=== PATIENT | female | born 1990 | race Hispanic/Latino ===

== ENCOUNTER 2018-05-31 10:15 | Outpatient (CLI) | payer BC ==
--- NOTE | 2018-05-31 11:49 | RAD ---
LEFT HAND RADIOGRAPH: Date: 05/31/18 INDICATION: Arthralgia with left hand pain. FINDINGS: Joint spaces are preserved. Bone mineralization appears within normal limits. No active periarticular erosive change is evident. Soft tissues are normal appearing. IMPRESSION: Radiographically normal left hand. POS: [facility]
--- NOTE | 2018-05-31 11:50 | RAD ---
LEFT SHOULDER 2 VIEWS: Date: 05/31/18 HISTORY: Arthralgia. FINDINGS: No fracture or dislocation. AC joint appears normally aligned. IMPRESSION: Unremarkable left shoulder. POS: [facility]
--- NOTE | 2018-05-31 11:50 | RAD ---
RIGHT HAND THREE VIEWS: INDICATIONS: History of arthralgia. COMPARISON: The exam is compared to the contralateral left hand radiograph performed on the same day. FINDINGS: The joint spaces appear preserved. No periarticular erosive change is evident. Bone mineralization appears within normal limits. The soft tissues are normal appearing. No acute fracture is evident. IMPRESSION: Radiographically normal right hand. POS: [facility]
--- NOTE | 2018-05-31 11:52 | RAD ---
RIGHT SHOULDER 2 VIEWS: HISTORY: Arthralgia. No evidence of fracture or dislocation. AC joint is upper normal width but is normally aligned. IMPRESSION: Unremarkable right shoulder. POS: [facility]
== END 2018-05-31 10:16 | disposition home or self-care (01) ==
LOC: RAD 10:15 → BICRAD 10:16
PROVIDERS: ATTEND Internal Medicine
DX: M25.542 Pain in joints of left hand (principal); M25.541 Pain in joints of right hand; M25.512 Pain in left shoulder; M25.511 Pain in right shoulder; Z00.00 Encounter for general adult medical examination without abnormal findings; Z12.4 Encounter for screening for malignant neoplasm of cervix; M25.50 Pain in unspecified joint
CPT/HCPCS: 80053; 80061; 82306; 83520; 84443; 85025; 86140; 86160; 86200; 86225; 86235; 86376; 88142; G0123

== ENCOUNTER 2019-03-15 08:06 | Outpatient (CLI) | payer BC ==
--- NOTE | 2019-03-15 10:42 | ULT ---
RIGHT BREAST ULTRASOUND: Date: 03/15/19 INDICATION: History of benign biopsied right breast mass. Reference made to outside imaging from 2016. FINDINGS: Localized ultrasound of the upper right breast at site of mass of concern reveals a 2.0 cm well circu mscribed slightly hypoechoic mass, which when comparing to prior exams, is stable to slightly smaller in size. There is an additional smaller but similar morphologically appearing mass of the adjacent u pper right breast. 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 IMPRESSION: BI-RADS Category 2 - Benign findings. Stable mass of the upper right breast consistent with the patie nt's previously biopsied proven benign lesion. There is an additional, adjacent stable 1.5 cm benign appearing mass, most consistent with a stable f ibroadenoma. POS: [facility]
== END 2019-03-15 08:07 | disposition home or self-care (01) ==
LOC: BICULT 08:06
PROVIDERS: ATTEND Student in an Organized Health Care Education/Training Program
DX: N63.11 Unspecified lump in the right breast, upper outer quadrant (principal)